=== PATIENT | male | born 1950 | race Hispanic/Latino ===

== ENCOUNTER 2020-01-05 00:46 | Observation (INO) | payer MEDICARE, OTHER ==
--- NOTE | 2020-01-05 00:54 | ED.PDOC ---
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 - History of Present Illness Timing/Duration: unsure Severity: severe Improving Factors: nothing Worsening Factors: nothing Associated Symptoms: other - dizziness Allergies/Adverse Reactions: Allergies NO KNOWN ALLERGY Allergy (Verified 07/18/16 12:52) Home Medications: Ambulatory Orders Aspirin [Aspirin EC] 81 mg PO DAILY 07/18/16 Atorvastatin Calcium [Lipitor] 40 mg PO DAILY 07/18/16 Carvedilol [Coreg] 25 mg PO BID 07/18/16 Clopidogrel Bisulfate [Plavix] 75 mg PO DAILY 07/18/16 Gabapentin [Neurontin] 300 mg PO TID 07/18/16 Levothyroxine Sodium 50 mcg PO DAILY 07/18/16 Lisinopril 10 mg PO DAILY 07/18/16 Metformin HCl [Metformin Hydrochloride] 1,000 mg PO BID 07/18/16 Ranitidine HCl [Zantac 75] 75 mg PO BID PRN 07/18/16 Albuterol Inhaler [Ventolin Hfa Inhaler] 1 puff INH Q4HR PRN #1 inh 07/21/16 Albuterol Sulfate Nebs [Proventil Nebs] 2.5 mg INH BID PRN #30 vial 07/21/16 Review of Systems - Review of Systems Constitutional: States: no symptoms reported EENTM: States: no symptoms reported Respiratory: States: no symptoms reported Cardiology: States: chest pain Gastrointestinal/Abdominal: States: no symptoms reported Genitourinary: States: no symptoms reported Musculoskeletal: States: no symptoms reported Skin: States: no symptoms reported Neurological: States: other - dizziness Endocrine: States: no symptoms reported Hematologic/Lymphatic: States: no symptoms reported Past Medical History (General) - Patient Medical History Hx Seizures: No Hx Stroke: No Hx Asthma: No Hx of COPD: No Hx Cardiac Disorders: Yes Hx Congestive Heart Failure: No Hx Hypertension: Yes Hx Diabetes: Yes Hx MRSA: No - Vaccination History Hx Influenza Vaccination: Yes - 2015 Hx Pneumococcal Vaccination: Yes - 2014 - Social History Hx Tobacco Use: No Hx Alcohol Use: No Hx Substance Use: No Hx Physical Abuse: No Hx Emotional Abuse: No Family Medical History - Family History Father Family History: Unknown Living Status: Hx Cardiac Disease: Yes - parents Hx Family Diabetes: Yes - mom Physical Exam - Physical Exam General Appearance: Alert, Well Developed, Well Groomed, Well Hydrated, Well Nourished Eye Exam: bilateral normal Ears, Nose, Throat: hearing grossly normal, normal ENT inspection, normal pharynx Neck: non-tender, full range of motion, supple, normal inspection Respiratory: chest non-tender, lungs clear, normal breath sounds, no respiratory distress, no accessory muscle use Cardiovascular/Chest: normal peripheral pulses, regular rate, rhythm, no edema, no gallop, no JVD, no murmur Peripheral Pulses: radial,right: 2+, radial,left: 2+ Gastrointestinal/Abdominal: normal bowel sounds, non tender, soft, no organomegaly, no pulsatile mass Back Exam: normal inspection Extremity: normal range of motion, non-tender, normal inspection 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 By the time patient arrived in the ER he did mention the chest pain felt like he was a little bit out of it but had no neurological deficit. Since patient fell hit the floor, order head CT that did not show evidence of epidural subdural intracranial hemorrhage, chest x-ray did not show any pneumonia or widened mediastinum to suggest aortic dissection patient troponins were negative but the d-dimer since he did mention having chest pain plus syncope I wanted to rule out a pulmonary embolism and the d- dimer came back elevated so CTA was ordered and no evidence of PE but there was evidence of bilateral pneumonia At this point I order blood cultures, put the patient on Rocephin/Zithromax and also ordered a covid-19 She was consulted with the hospitalist for admission 01/05/20 02:44 Departure - Departure Clinical Impression: Syncope Qualifiers: Syncope type: unspecified Qualified Code(s): R55 - Syncope and collapse Pneumonia Qualifiers: Pneumonia type: due to unspecified organism Laterality: bilateral Lung location: upper lobe of lung Qualified Code(s): J18.9 - Pneumonia, unspecified organism Disposition: Admit Patient Referrals: BERNABE MONSALVE [Primary Care Provider] - 1-2 Weeks Home Medications: Ambulatory Orders Aspirin [Aspirin EC] 81 mg PO DAILY 07/18/16 Atorvastatin Calcium [Lipitor] 40 mg PO DAILY 07/18/16 Carvedilol [Coreg] 25 mg PO BID 07/18/16 Clopidogrel Bisulfate [Plavix] 75 mg PO DAILY 07/18/16 Gabapentin [Neurontin] 300 mg PO TID 07/18/16 Levothyroxine Sodium 50 mcg PO DAILY 07/18/16 Lisinopril 10 mg PO DAILY 07/18/16 Metformin HCl [Metformin Hydrochloride] 1,000 mg PO BID 07/18/16 Ranitidine HCl [Zantac 75] 75 mg PO BID PRN 07/18/16 Albuterol Inhaler [Ventolin Hfa Inhaler] 1 puff INH Q4HR PRN #1 inh 07/21/16 Albuterol Sulfate Nebs [Proventil Nebs] 2.5 mg INH BID PRN #30 vial 07/21/16 Decision To Admit - Decistion To Admit Decision to Admit Reason: Admit from ER Decision to Admit Date: 01/05/20 Decision to Admit Time: 02:44
--- NOTE | 2020-01-05 01:34 | RAD ---
EXAM DESCRIPTION: Chest,1 View CLINICAL HISTORY: 69 years Male, syncope COMPARISON: 07/20/2016 TECHNIQUE: Single AP chest radiograph. FINDINGS: Clear lungs. No pneumothorax or pleural effusion. Normal cardiomediastinal contour. Normal osseous structures. IMPRESSION: 1. No acute cardiopulmonary process. Electronically signed by: Noe Ellington MD 01/05/2020 1:33 AM CDT
--- NOTE | 2020-01-05 01:34 | CT ---
EXAM: CT head without contrast. INDICATION: Syncope. TECHNIQUE: Contiguous axial CT images of the brain. Intravenous contrast: Absent. DLP 859 mGy-cm. This exam was performed according to our departmental dose-optimization program, which includes automated exposure control, adjustment of the mA and/or kV according to patient size and/or use of iterative reconstruction technique. COMPARISON: None. FINDINGS: Subcutaneous: Unremarkable. No acute intracranial hemorrhage. Brain volume is age-appropriate. There are periventricular and deep white matter chronic microvascular changes. No midline shift. No mass effect. Ventricles: No hydrocephalus. Wilhelm-white differentiation preserved. Paranasal sinuses/mastoid air cells: Visualized portions are aerated. Bones/orbits: Visualized portions are unremarkable. IMPRESSION: 1. No CT evidence of acute intracranial hemorrhage. Electronically signed by: Zaid Casey MD 01/05/2020 1:33 AM CDT
--- NOTE | 2020-01-05 01:36 | RAD ---
EXAM: Ribs,Left 3 Views CLINICAL HISTORY: syncope COMPARISON: 07/20/2016 TECHNIQUE: Three radiograph of the left ribs, including AP and oblique views. FINDINGS: No evidence of displaced rib fracture. No pneumothorax. Clear lungs. Normal cardiomediastinal contour. IMPRESSION: 1. No evidence of displaced rib fracture. Electronically signed by: Noe Ellington MD 01/05/2020 1:35 AM CDT
--- NOTE | 2020-01-05 02:35 | CT ---
CT angiogram chest with contrast on 01/05/2020 CLINICAL INDICATION: Syncope TECHNIQUE: Multiple axial images are obtained throughout the chest following the administration of IV contrast. Computer generated 3D reconstructions/MIPS were performed. This exam was performed according to our departmental dose-optimization program, which includes automated exposure control, adjustment of the mA and/or kV according to patient size and/or use of iterative reconstruction technique. Total DLP is 699.09 mGy*cm. COMPARISON: CT abdomen and lower chest from 07/18/2016 FINDINGS: Coronary artery calcifications and other vascular calcifications are noted. There is no thoracic aortic aneurysm or dissection. There are no filling defects within the pulmonary arteries to suggest pulmonary embolus. Limited visualized upper abdomen is unremarkable. There is no pleural or pericardial effusion. There is no thoracic adenopathy. There are left greater than right upper lobe areas of airspace disease consistent with bilateral pneumonia. There are bilateral tree-in-bud nodular opacities consistent with an infectious bronchiolitis, bronchopneumonia and/or aspiration. There is some bronchial wall thickening suggesting bronchitis as well. No acute bony abnormality is noted. IMPRESSION: 1. No evidence of pulmonary embolus. 2. Bilateral upper lobe early pneumonia with findings consistent with likely infectious bronchiolitis and/or bronchopneumonia bilaterally as well. 3. Bronchial wall thickening suggesting bronchitis as well. Electronically signed by: Dedrick Saul 01/05/2020 2:34 AM CDT
[2020-01-05] MEDS ORDERED: cefTRIAXone SODIUM 1 GM in SODIUM CHL 0.9% 50ML MIN-BAG+ 50 ML IVPB ONE (02:43)
[2020-01-05] MEDS ORDERED: AZITHROMYCIN IV 500 MG in SODIUM CHLORIDE 0.9% 250ML 250 ML IVPB ONE (02:44)
[2020-01-05] MEDS ORDERED: ACETAMINOPHEN 325 MG TAB PO PRN (02:49)
[2020-01-05] MEDS ORDERED: NITROGLYCERIN 0.4 MG 25 EA TAB SL PRN (02:49)
[2020-01-05] MEDS ORDERED: MORPHINE SULFATE INJ 10 MG/ML VIAL IV PRN (02:49)
[2020-01-05] MEDS ORDERED: SODIUM CHLORIDE 0.9% (FLUSH) 10 ML SYG IV PRN ×3 (02:49→02:53)
[2020-01-05] MEDS ORDERED: LACTATED RINGERS 1,000 ML IVS PRN (02:53)
[2020-01-05] MEDS ORDERED: ENOXAPARIN SODIUM 40 MG/0.4 ML SYG SUBCU SCH ×2 (03:00→21:00)
[2020-01-05] MEDS ORDERED: IV SET AND CAP CHANGE INJ INJ SCH ×3 (03:00)
[2020-01-05] MEDS ORDERED: cefTRIAXone SODIUM 1 GM in SODIUM CHL 0.9% 50ML MIN-BAG+ 50 ML IVPB SCH (03:00)
[2020-01-05] MEDS ORDERED: AZITHROMYCIN IV 500 MG in SODIUM CHLORIDE 0.9% 250ML 250 ML IVPB SCH (03:00)
--- NOTE | 2020-01-05 03:39 | HP ---
SUPERVISING PHYSICIAN: Noel Sadler MD CHIEF COMPLAINT: Chest pain. HISTORY OF PRESENT ILLNESS: This is a 69-year-old male patient who came to the hospital after a syncopal episode x2. He was at [facility] just talking with some coworkers. Initially, he passed out and came to, but then had another episode and passed out again. Therefore, he came to the Emergency Room. The patient states he had a little bit of chest pressure around that time, but no shortness of breath. He does not feel like he has been ill lately and this was an isolated incident. He has not been around anybody who has been ill, but he does work at [employer] [facility]. When he came to the ER, his workup included labs and films. His CBC was pretty much unremarkable. D-dimer was elevated at 554. Chemistry was unremarkable as well. He did have a mildly elevated BUN. Due to the elevated D-dimer, the patient had a CT angiogram which did not show any pulmonary embolism. Bilateral early upper lobe pneumonia was found. Cardiac enzymes were negative. EKG did not show any acute findings, either. Therefore, he was referred for chest pain rule out, but additionally he had a COVID-19 test based on the CT findings. At time of examination, the patient is awake and oriented. He denies any shortness of breath. 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 He has not had any fever or chills, no shortness of breath or cough. PAST MEDICAL HISTORY: 1. Hypertension. 2. Coronary artery disease. 3. Hyperlipidemia. 4. Diabetes mellitus. PAST SURGICAL HISTORY: 1. PTCA with stent. MEDICATIONS: 1. Aspirin 81 mg p.o. daily. 2. Atorvastatin 40 mg p.o. daily. 3. Carvedilol 25 mg p.o. b.i.d. 4. Plavix 75 mg p.o. daily. 5. Donepezil 10 mg p.o. at bedtime. 6. Gabapentin 300 mg p.o. t.i.d. 7. Glipizide 5 mg p.o. b.i.d. 8. Levothyroxine 50 mcg p.o. daily. 9. Lisinopril 10 mg p.o. daily. 10. Metformin 1000 mg p.o. b.i.d. 11. Zantac 75 mg p.o. b.i.d. 12. Albuterol inhaler 1 puff every 4 hours as needed. ALLERGIES: NO KNOWN DRUG ALLERGIES. FAMILY HISTORY: Reviewed and noncontributory. SOCIAL HISTORY: Previous smoker, no alcohol, no illicit drugs. REVIEW OF SYSTEMS: CONSTITUTIONAL: No fever or chills. No recent weight loss or weight gain. HEENT: No headaches, vision changes, ear pain, nasal congestion or throat pain. RESPIRATORY: No cough, hemoptysis or pleuritic chest pain. CARDIOVASCULAR: Positive for some chest pain. No palpitations or peripheral edema. GASTROINTESTINAL: No nausea, vomiting, diarrhea, constipation or abdominal pain. GENITOURINARY: No dysuria, frequency or flank pain. ENDOCRINE: No polydipsia, polyuria or polyphagia. No heat or cold intolerance. SKIN: No rashes, lesions or wounds. NEUROLOGIC: Positive for syncope. No paresthesias or seizures. PHYSICAL EXAMINATION: VITAL SIGNS: Blood pressure 178/78. Heart rate 59. Respiratory rate 17. Temperature 97.9. Oxygen saturation 98%. GENERAL: Mr. Sorensen is a 69-year-old male patient who is alert and in no active distress currently. NEUROLOGIC: The patient is alert and oriented. Cranial nerves II-XII are grossly intact. LUNGS: Clear to auscultation bilaterally. CARDIOVASCULAR: Regular rate and rhythm. Normal S1, S2. ABDOMEN: Soft. Positive bowel sounds. No tenderness to palpation. GENITOURINARY: Deferred. EXTREMITIES: Lower extremities with no edema. ASSESSMENT: 1. Chest pain, rule out acute coronary syndrome. 2. Syncopal episode. 3. Dehydration as evidenced by elevated BUN. 4. History of diabetes mellitus , type2. 5. History of coronary artery disease status post stent in the pat. PLAN: At this time, the patient is admitted for chest pain rule out. We will continue serial cardiac enzymes and EKGs. In the meantime, I will resume his home medications. He has empirically been placed on Rocephin and azithromycin given the CT findings. He has not had any shortness of breath or fever. Additionally, his blood sugar is 123 and he was checked at [facility] after his syncopal episode, so this was the cause for his syncope. I will continue his home medications and check blood sugars a.c. and h.s. I placed him on a cardiac diet as well. In the event that his cardiac enzymes are negative and he has no further syncopal episodes, we can probably discharge him home. He will remain isolated until COVID-19 testing is resulted. #[id number] [facility]
[2020-01-05] MEDS ORDERED: ALBUTEROL INHALER 64 PUFF/8GM INH PRN (08:15)
[2020-01-05] MEDS ORDERED: CARVEDILOL 12.5 MG TAB PO SCH (09:00)
[2020-01-05] MEDS ORDERED: LISINOPRIL 10 MG TAB PO SCH (09:00)
[2020-01-05] MEDS ORDERED: FAMOTIDINE 20 MG TAB PO SCH (09:00)
[2020-01-05] MEDS ORDERED: LEVOTHYROXINE SODIUM 0.025 MG TAB PO SCH (09:00)
[2020-01-05] MEDS ORDERED: ASPIRIN (ENTERIC COATED) 81 MG TAB PO SCH (09:00)
[2020-01-05] MEDS ORDERED: CLOPIDOGREL 75 MG TAB PO SCH (09:00)
[2020-01-05] MEDS: GABAPENTIN 300 MG CAP PO SCH ×2 (09:43→15:25)
[2020-01-05] MEDS: metFORMIN HCL 500 MG TAB PO SCH ×2 (09:43→15:26)
[2020-01-05] MEDS: glipiZIDE 5 MG TAB PO SCH ×2 (09:43→15:25)
[2020-01-05] MEDS ORDERED: GLUCAGON INJ 1 MG VIAL SUBCU PRN (09:45)
[2020-01-05] MEDS ORDERED: DEXTROSE 50% 25 GM/50 ML SYG IV PRN (09:45)
[2020-01-05 16:29] VITALS: BP 140/68; TEMP 98.1
--- NOTE | 2020-01-05 16:40 | SSS ---
SUPERVISING PHYSICIAN: Noel Sadler MD CHIEF COMPLAINT: Chest pain. HISTORY OF PRESENT ILLNESS: This is a 69-year-old male patient who came to the hospital after a syncopal episode x2. He was at [facility] just talking with some coworkers. Initially, he passed out and came to, but then had another episode and passed out again. Therefore, he came to the Emergency Room. The patient states he had a little bit of chest pressure around that time, but no shortness of breath. He does not feel like he has been ill lately and this was an isolated incident. He has not been around anybody who has been ill, but he does work at [facility]. When he came to the ER, his workup included labs and films. His CBC was pretty much unremarkable. D-dimer was elevated at 554. Chemistry was unremarkable as well. He did have a mildly elevated BUN. Due to the elevated D-dimer, the patient had a CT angiogram which did not show any pulmonary embolism. Bilateral early upper lobe pneumonia was found. Cardiac enzymes were negative. EKG did not show any acute findings, either. Therefore, he was referred for chest pain rule out, but additionally he had a COVID-19 test based on the CT findings. At time of examination, the patient is awake and oriented. He denies any shortness of breath. 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 He has not had any fever or chills, no shortness of breath or cough. PAST MEDICAL HISTORY: 1. Hypertension. 2. Coronary artery disease. 3. Hyperlipidemia. 4. Diabetes mellitus. PAST SURGICAL HISTORY: 1. PTCA with stent. MEDICATIONS: 1. Aspirin 81 mg p.o. daily. 2. Atorvastatin 40 mg p.o. daily. 3. Carvedilol 25 mg p.o. b.i.d. 4. Plavix 75 mg p.o. daily. 5. Donepezil 10 mg p.o. at bedtime. 6. Gabapentin 300 mg p.o. t.i.d. 7. Glipizide 5 mg p.o. b.i.d. 8. Levothyroxine 50 mcg p.o. daily. 9. Lisinopril 10 mg p.o. daily. 10. Metformin 1000 mg p.o. b.i.d. 11. Zantac 75 mg p.o. b.i.d. 12. Albuterol inhaler 1 puff every 4 hours as needed. ALLERGIES: NO KNOWN DRUG ALLERGIES. FAMILY HISTORY: Reviewed and noncontributory. SOCIAL HISTORY: Previous smoker, no alcohol, no illicit drugs. REVIEW OF SYSTEMS: CONSTITUTIONAL: No fever or chills. No recent weight loss or weight gain. HEENT: No headaches, vision changes, ear pain, nasal congestion or throat pain. RESPIRATORY: No cough, hemoptysis or pleuritic chest pain. CARDIOVASCULAR: Positive for some chest pain. No palpitations or peripheral edema. GASTROINTESTINAL: No nausea, vomiting, diarrhea, constipation or abdominal pain. GENITOURINARY: No dysuria, frequency or flank pain. ENDOCRINE: No polydipsia, polyuria or polyphagia. No heat or cold intolerance. SKIN: No rashes, lesions or wounds. NEUROLOGIC: Positive for syncope. No paresthesias or seizures. PHYSICAL EXAMINATION: VITAL SIGNS: Blood pressure 178/78. Heart rate 59. Respiratory rate 17. Temperature 97.9. Oxygen saturation 98%. GENERAL: Mr. Sorensen is a 69-year-old male patient who is alert and in no active distress currently. NEUROLOGIC: The patient is alert and oriented. Cranial nerves II-XII are grossly intact. LUNGS: Clear to auscultation bilaterally. CARDIOVASCULAR: Regular rate and rhythm. Normal S1, S2. ABDOMEN: Soft. Positive bowel sounds. No tenderness to palpation. GENITOURINARY: Deferred. EXTREMITIES: Lower extremities with no edema. ASSESSMENT: 1. Chest pain, rule out acute coronary syndrome. 2. Syncopal episode. 3. Bilateral pneumonia as evidenced by CTA of the chest. 4. Dehydration as evidenced by elevated BUN. 5. History of diabetes mellitus , type2. 6. History of coronary artery disease status post stent in the past. PLAN: At this time, the patient is admitted for chest pain rule out. We will continue serial cardiac enzymes and EKGs. In the meantime, I will resume his home medications. He has empirically been placed on Rocephin and azithromycin given the CT findings. He has not had any shortness of breath or fever. Additionally, his blood sugar is 123 and he was checked at [facility] after his syncopal episode, so this was not the cause for his syncope. I will continue his home medications and check blood sugars a.c. and h.s. I placed him on a cardiac diet as well. In the event that his cardiac enzymes are negative and he has no further syncopal episodes, we can probably discharge him home. He will remain isolated until COVID-19 testing is resulted. His completed serial cardiac enzymes remained negative along with normal EKGs. He had no further chest pain or syncopal episodes. We are discharging home with azithromycin and instructions to stay isolated until results of COVID-19 are back. #[id number] [facility]
[2020-01-05 17:31] VITALS: O2SAT 96
[2020-01-05] MEDS ORDERED: ATORVASTATIN 20 MG TAB PO SCH (21:00)
[2020-01-05] MEDS ORDERED: DONEPEZIL HCL 5 MG TAB PO SCH (21:00)
[2020-01-06] MEDS ORDERED: ASPIRIN TABLET 325 MG TAB PO SCH (09:00)
== END 2020-01-05 17:30 | disposition home or self-care (01) ==
LOC: ER 00:46 → MS 03:39
PROVIDERS: ADMIT Nurse Practitioner; ATTEND Nurse Practitioner
DX: J18.1 Lobar pneumonia, unspecified organism (principal); E86.0 Dehydration; R07.89 Other chest pain; R55 Syncope and collapse; E11.9 Type 2 diabetes mellitus without complications; I25.10 Atherosclerotic heart disease of native coronary artery without angina pectoris; I10 Essential (primary) hypertension; E78.5 Hyperlipidemia, unspecified; Z11.59 Encounter for screening for other viral diseases; Z95.5 Presence of coronary angioplasty implant and graft; Z79.02 Long term (current) use of antithrombotics/antiplatelets; Z79.82 Long term (current) use of aspirin; Z79.84 Long term (current) use of oral hypoglycemic drugs; Z79.899 Other long term (current) drug therapy; Z87.891 Personal history of nicotine dependence
CPT/HCPCS: 96374; 96376; 96372; J0696; J7050 ×2; J1650; J0456; J7120; 85379; 82553 ×2; 80053; 82948 ×2; 80061; 36415; 85025; 82550 ×2; 87040 ×2; 84484 ×3; 83880; 36416 ×2; 71045; 71101; 70450; 71275; 94664; 99285; 93005 ×3; G0378; U0002

== ENCOUNTER 2020-01-25 13:32 | Observation (INO) | payer MEDICARE ==
[2020-01-25] MEDS ORDERED: SODIUM CHLORIDE 0.9% 1000ML 2,000 ML IVS ONE (13:38)
--- NOTE | 2020-01-25 13:39 | ED.PDOC ---
History of Present Illness - General Time Seen by Provider: 01/25/20 13:37 - History of Present Illness Initial Comments: CC: syncope 70 M +pmh presents via EMS to ED c/o acute syncope [employer]. Pt was found down in his yard while mowing with associated urinary and bowel incontinence. Pt does not know what happened and denies h/of seizures. He does endorse a few episodes of syncope but denies any urinary/bowel incontinence previously. He has h/o x2 ME's with x6 stents and x4 strokes. Denies alleviating/aggravating factors. Denies associated CP, palpitations, SOB, cough, n/v/d, f/c. Pt denies any other complaints at this time. Allergies/Adverse Reactions: Allergies NO KNOWN ALLERGY Allergy (Verified 07/18/16 12:52) Home Medications: Ambulatory Orders Aspirin [Aspirin EC] 81 mg PO DAILY 07/18/16 Atorvastatin Calcium [Lipitor] 40 mg PO DAILY 07/18/16 Carvedilol [Coreg] 25 mg PO BID 07/18/16 Clopidogrel Bisulfate [Plavix] 75 mg PO DAILY 07/18/16 Gabapentin [Neurontin] 300 mg PO TID 07/18/16 Levothyroxine Sodium 50 mcg PO DAILY 07/18/16 Lisinopril 10 mg PO DAILY 07/18/16 Metformin HCl [Metformin Hydrochloride] 1,000 mg PO BID 07/18/16 Ranitidine HCl [Zantac 75] 75 mg PO BID PRN 07/18/16 Albuterol Inhaler [Ventolin Hfa Inhaler] 1 puff INH Q4HR PRN #1 inh 07/21/16 Albuterol Sulfate Nebs [Proventil Nebs] 2.5 mg INH BID PRN #30 vial 07/21/16 Azithromycin 500 mg PO DAILY 3 Days #3 tab 01/05/20 Donepezil Hydrochloride [Donepezil HCl] 10 mg PO BEDTIME 01/05/20 Glipizide 5 mg PO BID 01/05/20 Review of Systems - Review of Systems Constitutional: States: malaise. Denies: chills, fever EENTM: Denies: eye pain, blurred vision, nose congestion Respiratory: Denies: cough, short of breath Cardiology: States: syncope. Denies: chest pain, edema, palpitations Gastrointestinal/Abdominal: Denies: abdominal pain, diarrhea, nausea, vomiting Genitourinary: Denies: dysuria, frequency Musculoskeletal: Denies: back pain, joint swelling, muscle pain, neck pain Skin: Denies: change in color, rash Neurological: States: seizure - unknown to pt, likely seizure due to bowel and urine incontinence, other - generalized fatigue/weakness. Denies: headache Past Medical History (General) - Patient Medical History Hx Seizures: No Hx Stroke: No Hx Asthma: No Hx of COPD: No Hx Cardiac Disorders: Yes Hx Congestive Heart Failure: No Hx Pacemaker: No Hx Hypertension: Yes Hx Diabetes: Yes Hx MRSA: No - Vaccination History Hx Influenza Vaccination: Yes - 2015 Hx Pneumococcal Vaccination: Yes - 2013 - Social History Hx Tobacco Use: No Hx Alcohol Use: No Hx Substance Use: No Hx Physical Abuse: No Hx Emotional Abuse: No Family Medical History - Family History Father Family History: Unknown Living Status: Hx Cardiac Disease: Yes - parents Hx Family Diabetes: Yes - mom Physical Exam - Physical Exam General Appearance: Alert, Ill Appearing Eye Exam: bilateral normal Ears, Nose, Throat: normal ENT inspection Neck: non-tender, full range of motion, supple, normal inspection Respiratory: lungs clear, normal breath sounds, no respiratory distress, no accessory muscle use Cardiovascular/Chest: normal peripheral pulses, regular rate, rhythm, no edema, no JVD, no murmur Gastrointestinal/Abdominal: normal bowel sounds, non tender, soft, no pulsatile mass Extremity: non-tender, normal inspection, no pedal edema Neurologic: other - alert, GCS 14, global weakness without focal deficit Skin Exam: normal color, other - cool, wet from outdoorr environment, no pallor, no rash, no edema Progress - Progress Progress: Presents with likely dehydration and heat induced new onset seizure. No external signs of trauma and pt is hypothermic; thus not head stroke. I will obtain labs, imaging, EKG, provide appropriate pharmacotherapy, and continue to monitor/reassess. Disposition will depend on labs, imaging, EKG, and overall ED course; however, admission is expected. Obed Tello DO [employer]: [phone] Rechecked pt with family at bedside. NAD, VSS and improved, and pt is feeling better with GCS 15. I have discussed labs, imaging, and my clinical exam with pt and family member. They both agree with admission. 1509 I have consulted with hospitalist Cindy Hernández and discussed pt's case. She will consult with her attending and supporting staff; then call back and notify if pt can be admitted or will require transfer. - Results/Orders Results/Orders: EKG @ 1334 Read @1335 NSR @73, nl axis, intervals wnl, no ST elevations/depressions. No STEMI. Vital Signs - 24 hr 01/25/20 01/25/20 01/25/20 13:50 14:32 15:00 Temperature 96.6 F L Pulse Rate [ 70 76 83 Left Radial] Respiratory 20 20 16 Rate Blood Pressure 130/69 111/59 129/67 [Left Arm] O2 Sat by Pulse 97 96 98 Oximetry 01/25/20 13:37 IV Care:Saline Lock per Protoc QSHIFT IV:Start .ONCE 01/25/20 13:45 EKG STAT 01/25/20 14:43 ED Intent to Admit Routine Laboratory Results - last 24 hr 01/25/20 01/25/20 01/25/20 13:40 13:40 13:40 WBC 10.7 RBC 4.91 Hgb 14.3 Hct 41.5 L MCV 84.5 MCH 29.0 MCHC 34.4 RDW 15.7 H Plt Count 383 MPV 8.6 Absolute Neuts (auto) 8.40 H Absolute Lymphs (auto) 1.20 Absolute Monos (auto) 0.50 Absolute Eos (auto) 0.40 Absolute Basos (auto) 0.20 H Neutrophils % 78.5 H Lymphocytes % 11.3 L Monocytes % 4.7 Eosinophils % 3.4 Basophils % 2.1 H PT INR PTT (SP) Sodium 139 Potassium 4.7 Chloride 103 Carbon Dioxide 24 Anion Gap 16.7 BUN 19 H Creatinine 1.95 H BUN/Creatinine Ratio 9.7 L Random Glucose 145 H Serum Osmolality 282.4 Lactic Acid Calcium 9.6 Magnesium 1.8 Total Bilirubin 1.1 H AST 24 ALT 20 Alkaline Phosphatase 73 Troponin I < 0.02 Serum Total Protein 8.2 Albumin 4.6 Globulin 3.6 H Albumin/Globulin Ratio 1.3 01/25/20 01/25/20 01/25/20 13:40 13:47 15:19 WBC RBC Hgb Hct MCV MCH MCHC RDW Plt Count MPV Absolute Neuts (auto) Absolute Lymphs (auto) Absolute Monos (auto) Absolute Eos (auto) Absolute Basos (auto) Neutrophils % Lymphocytes % Monocytes % Eosinophils % Basophils % PT 10.1 INR 1.02 PTT (SP) 20.5 L Sodium Potassium Chloride Carbon Dioxide Anion Gap BUN Creatinine BUN/Creatinine Ratio Random Glucose Serum Osmolality Lactic Acid 5.0 H* 3.6 H* Calcium Magnesium Total Bilirubin AST ALT Alkaline Phosphatase Troponin I Serum Total Protein Albumin Globulin Albumin/Globulin Ratio EXAM DESCRIPTION: Head CLINICAL HISTORY: 70 years Male, heat stroke, h/o x4 strokes COMPARISON: 01/05/2020. TECHNIQUE: Axial images obtained from the skull base to the vertex without intravenous contrast with images. Coronal and sagittal reformations provided. This exam was performed according to our departmental dose-optimization program, which includes automated exposure control, adjustment of the mA and/or kV according to patient size and/or use of iterative reconstruction technique. Time Last Seen Well (If known) for Code Stroke: n/a FINDINGS: Brain Parenchyma, ventricles, meninges, and extra-axial spaces: Mild generalized cerebral volume loss. [id number] Nonspecific white matter hypodensities in the cerebral hemispheres likely related to ischemic small vessel disease. Possible difficulty differentiating a small acute infarction given these hypodensities. No acute intracranial hemorrhage. No abnormal extra-axial fluid collection. Vascular: Atherosclerosis is within the carotid siphons and vertebral arteries. Calvarium, paranasal sinuses, mastoids, and orbits: Calvarium intact. Visualized paranasal sinuses and mastoid air cells clear. Orbits unremarkable. IMPRESSION: 1. No acute intracranial abnormality. 2. Senescent changes. 3. No significant interval change from 01/05/2020. Electronically signed by: Kee Bradshaw MD 01/25/2020 2:05 PM CDT - 8169 Departure - Departure Clinical Impression: Dehydration after exertion, New onset seizure without head trauma, Lactic acid acidosis, LARA (acute kidney injury), Syncope and collapse Time of Disposition: 15:09 Disposition: Admit Patient Condition: Good Diet: resume usual diet Home Medications: Ambulatory Orders Aspirin [Aspirin EC] 81 mg PO DAILY 07/18/16 Atorvastatin Calcium [Lipitor] 40 mg PO DAILY 07/18/16 Carvedilol [Coreg] 25 mg PO BID 07/18/16 Clopidogrel Bisulfate [Plavix] 75 mg PO DAILY 07/18/16 Gabapentin [Neurontin] 300 mg PO TID 07/18/16 Levothyroxine Sodium 50 mcg PO DAILY 07/18/16 Lisinopril 10 mg PO DAILY 07/18/16 Metformin HCl [Metformin Hydrochloride] 1,000 mg PO BID 07/18/16 Ranitidine HCl [Zantac 75] 75 mg PO BID PRN 07/18/16 Albuterol Inhaler [Ventolin Hfa Inhaler] 1 puff INH Q4HR PRN #1 inh 07/21/16 Albuterol Sulfate Nebs [Proventil Nebs] 2.5 mg INH BID PRN #30 vial 07/21/16 Azithromycin 500 mg PO DAILY 3 Days #3 tab 01/05/20 Donepezil Hydrochloride [Donepezil HCl] 10 mg PO BEDTIME 01/05/20 Glipizide 5 mg PO BID 01/05/20 Decision To Admit - Decistion To Admit Decision to Admit Reason: Admit from ER Decision to Admit Date: 01/25/20 Decision to Admit Time: 15:01
--- NOTE | 2020-01-25 14:06 | CT ---
EXAM DESCRIPTION: Head CLINICAL HISTORY: 70 years Male, heat stroke, h/o x4 strokes COMPARISON: 01/05/2020. TECHNIQUE: Axial images obtained from the skull base to the vertex without intravenous contrast with images. Coronal and sagittal reformations provided. This exam was performed according to our departmental dose-optimization program, which includes automated exposure control, adjustment of the mA and/or kV according to patient size and/or use of iterative reconstruction technique. Time Last Seen Well (If known) for Code Stroke: n/a FINDINGS: Brain Parenchyma, ventricles, meninges, and extra-axial spaces: Mild generalized cerebral volume loss. [id number] Nonspecific white matter hypodensities in the cerebral hemispheres likely related to ischemic small vessel disease. Possible difficulty differentiating a small acute infarction given these hypodensities. No acute intracranial hemorrhage. No abnormal extra-axial fluid collection. Vascular: Atherosclerosis is within the carotid siphons and vertebral arteries. Calvarium, paranasal sinuses, mastoids, and orbits: Calvarium intact. Visualized paranasal sinuses and mastoid air cells clear. Orbits unremarkable. IMPRESSION: 1. No acute intracranial abnormality. 2. Senescent changes. 3. No significant interval change from 01/05/2020. Electronically signed by: Kee Bradshaw MD 01/25/2020 2:05 PM CDT
[2020-01-25] MEDS ORDERED: levETIRAcetam INJ 1,000 MG in SODIUM CHLORIDE 0.9% 100ML 100 ML IVPB ONE (14:43)
--- NOTE | 2020-01-25 15:39 | HP ---
SUPERVISING PHYSICIAN: Sal Borja MD CHIEF COMPLAINT: Syncopal episode. HISTORY OF PRESENT ILLNESS: This is a 70 year-old male patient who was at home in his usual state of health. He was out mowing the grass and asked his grandson to go in and get him some later. He was later found down in his front yard for an unknown amount of time. He did have urinary and bowel incontinence at that time and he does not remember what happened but there is no history of seizure disorder. He has had some syncopal episode in the past but he denies any urinary or bowel incontinence. He has had a history of 2 myocardial infarctions in the past with multiple stents. He denied any chest pain, palpitations or upper respiratory symptoms and by the time he presented to the Emergency Room, he was alert and oriented and his vital signs were stable. In the Emergency Room, his initial set of vital signs showed a temperature of 96.6 with a heart rate of 70, blood pressure 130/69, respiratory rate 20, oxygen saturation 97%. His lab studies showed WBC of 10.7 with hemoglobin of 14.3, hematocrit 41.5. He did have a left shift on his differential. His electrolytes are basically within normal limits. His lactic acid was high at 5 and his BUN was 19, creatinine 1.95, baseline creatinine is about 1.1. Troponin was negative. Bilirubin was slightly elevated at 1.1. Head CT showed: (1) No acute intracranial abnormality. (2) Senescent changes. (3) No significant interval change from 01/05/20. He was given fluids in the Emergency Room as well as some Levetiracetam and I was called for hospital admission. PAST MEDICAL HISTORY: 1. Hypertension. 2. Coronary artery disease. 3. Hyperlipidemia. 4. Diabetes mellitus type 2. 5. Myocardial infarction times 2. PAST SURGICAL HISTORY: 1. PTCA with stents. MEDICATIONS: Per the EMR and awaiting verification. ALLERGIES: NO KNOWN DRUG ALLERGIES. FAMILY HISTORY: Noncontributory. SOCIAL HISTORY: He has a previous history of tobacco use but he quit smoking approximately 15 years ago. He denies any ETOH or illicit drug use. REVIEW OF SYSTEMS: GENERAL: Negative for chills, fever or weight changes. HEENT: Negative for sinus symptoms, ear pain, vision changes, sore throat. RESPIRATORY: Negative for coughing, wheezing, shortness of breath CARDIAC: Negative for chest pain, palpitations, tachycardia. GI: Negative for nausea, vomiting or diarrhea or constipation. . SKIN: Negative for lesions or rashes. NEUROLOGICAL: Positive for syncopal episode, down for unknown length of time as well as some mild weakness. Negative for headaches or seizures. PHYSICAL EXAMINATION: VITAL SIGNS: Temperature 97./9, heart rate 88, blood pressure 126/68, respiratory rate 16, oxygen saturation 98% on room air. GENERAL: This is a 70 year-old male patient who is lying in his hospital bed. He is in no acute distress. HEENT: Normocephalic and atraumatic. Pupils are equal and reactive. Oropharynx clear. NECK: Supple without mass. CHEST: Essentially clear to auscultation bilaterally. There is equal rise and fall of the chest with inspiration and expiration CARDIOVASCULAR: Regular rate and rhythm. ABDOMEN: Soft, nondistended, non-tender. Bowel sounds are positive. BACK: Exam deferred. GENITOURINARY: Deferred. EXTREMITIES: No cyanosis, clubbing, or edema. NEUROLOGIC: He is awake, alert, and oriented x3. Cranial nerves II through XII are grossly intact as tested. LABORATORY: Labs and films are as per history of present illness. ASSESSMENT: 1. Acute on chronic kidney injury, baseline creatinine is 1.1. His admitting creatinine is 1.95. 2. Syncope with heat exhaustion versus questionable seizure. He has no history of seizure disorder. 3. Coronary artery disease with WA in the past plus stent placement. 4. Hypertension. 5. Diabetes mellitus type 2. PLAN: The patient will be placed in observation. We will give him fluids overnight and repeat his labs in the morning. His home medications will be restarted as soon as they are verified. Neuro checks will be done and we will watch for any seizure activity. He will have Lovenox for DVT prophylaxis, a PPI for ulcer prophylaxis. He will be on sliding scale insulin. He will need close followup with his primary care physician, Dr. Alberta Morales in [place] at discharge. We will continue to monitor him closely and follow as needed. #[id number] [facility]
[2020-01-25] MEDS ORDERED: ONDANSETRON INJ 4 MG/2 ML VIAL IV PRN (16:48)
[2020-01-25] MEDS ORDERED: SODIUM CHLORIDE 0.9% (FLUSH) 10 ML SYG IV PRN (16:48)
[2020-01-25] MEDS ORDERED: SODIUM CHLORIDE 0.45% 1000ML 1,000 ML IVS ONE (16:54)
[2020-01-25] MEDS ORDERED: DEXTROSE 50% 25 GM/50 ML SYG IV PRN (16:58)
[2020-01-25] MEDS ORDERED: GLUCAGON INJ 1 MG VIAL SUBCU PRN (16:58)
[2020-01-25] MEDS ORDERED: ALBUTEROL SULFATE 2.5 MG/3 ML VIAL NEB PRN (17:00)
[2020-01-25] MEDS ORDERED: ENOXAPARIN SODIUM 40 MG/0.4 ML SYG SUBCU SCH (17:00)
[2020-01-25] MEDS ORDERED: IV SET AND CAP CHANGE INJ INJ SCH (17:00)
[2020-01-25] MEDS: INSULIN LISPRO 100 UNITS/ML PEN SUBCU SCH ×2 (18:22→21:05)
[2020-01-25] MEDS: ALBUTEROL SULFATE 2.5 MG/3 ML VIAL NEB SCH (20:45)
[2020-01-25] MEDS: SODIUM CHLORIDE 0.9% (FLUSH) 10 ML SYG IV SCH (21:10)
[2020-01-25] MEDS ORDERED: CARVEDILOL 12.5 MG TAB ONE (22:39)
[2020-01-25] MEDS: NON-FORMULARY MEDICATION 1 EA MIS (Carvedilol [Coreg] 25 MG) PO SCH (22:42)
[2020-01-25] MEDS: GABAPENTIN 300 MG CAP PO SCH (22:43)
[2020-01-26] MEDS ORDERED: LEVOTHYROXINE SODIUM 0.025 MG TAB ONE (04:52)
[2020-01-26] MEDS ORDERED: PANTOPRAZOLE SODIUM IV 40 MG VIAL ONE (04:52)
[2020-01-26 05:08] VITALS: TEMP 98.1
[2020-01-26] MEDS ORDERED: PANTOPRAZOLE SODIUM IV 40 MG VIAL IV SCH (06:30)
[2020-01-26] MEDS ORDERED: NON-FORMULARY MEDICATION 1 EA MIS (Levothyroxine Sodium [Levothyroxine Sodium] 50 MCG) PO SCH (07:00)
[2020-01-26] MEDS: INSULIN LISPRO 100 UNITS/ML PEN SUBCU SCH (07:18)
[2020-01-26] MEDS ORDERED: LISINOPRIL 10 MG TAB ONE (08:10)
[2020-01-26] MEDS ORDERED: CARVEDILOL 12.5 MG TAB ONE (08:10)
[2020-01-26] MEDS ORDERED: metFORMIN HCL 500 MG TAB ONE (08:10)
[2020-01-26] MEDS: GABAPENTIN 300 MG CAP PO SCH (08:15)
[2020-01-26] MEDS: NON-FORMULARY MEDICATION 1 EA MIS (Carvedilol [Coreg] 25 MG) PO SCH (08:15)
[2020-01-26] MEDS: SODIUM CHLORIDE 0.9% (FLUSH) 10 ML SYG IV SCH (08:16)
[2020-01-26 08:48] VITALS: BP 135/72
[2020-01-26] MEDS ORDERED: CLOPIDOGREL 75 MG TAB PO SCH (09:00)
[2020-01-26] MEDS ORDERED: ASPIRIN (ENTERIC COATED) 81 MG TAB PO SCH (09:00)
[2020-01-26] MEDS ORDERED: LISINOPRIL 10 MG TAB PO SCH (09:00)
[2020-01-26] MEDS ORDERED: NON-FORMULARY MEDICATION 1 EA MIS (Lisinopril [Lisinopril] 20 MG) PO SCH (09:00)
[2020-01-26] MEDS ORDERED: NON-FORMULARY MEDICATION 1 EA MIS (Metformin Hcl [Metformin Hydrochloride] 1,000 MG) PO SCH (09:00)
[2020-01-26] MEDS ORDERED: MAGNESIUM SULFATE PREMIX 2GM 2 GM in PREMIX BAG 1 BAG IVPB ONE (09:10)
[2020-01-26] MEDS: ALBUTEROL SULFATE 2.5 MG/3 ML VIAL NEB SCH (09:18)
[2020-01-26] MEDS ORDERED: MAGNESIUM SULFATE PREMIX 2GM 50 ML IVPB ONE (09:19)
[2020-01-26 09:22] VITALS: O2SAT 95
--- NOTE | 2020-01-26 12:36 | DS ---
SUPERVISING PHYSICIAN: Vipin Borja MD DISCHARGE DIAGNOSIS: 1. Acute on chronic kidney injury, baseline creatinine is 1.1. His admitting creatinine was 1.95. He has now normalized to his baseline. 2. Syncope with heat exhaustion versus questionable seizure. He has no history of seizure disorder. 3. Coronary artery disease with myocardial infarction in the past plus stent placement. 4. Hypertension. 5. Diabetes mellitus, type 2. HISTORY OF PRESENT ILLNESS: This is a 70 year-old male patient who was at home in his usual state of health. He was out mowing the grass and asked his grandson to go in and get him some water. He was later found down in his front yard for an unknown amount of time. He did have urinary and bowel incontinence at that time and he does not remember what happened but there is no history of seizure disorder. He has had some syncopal episodes in the past but he denies any urinary or bowel incontinence. He has had a history of 2 myocardial infarctions in the past with multiple stents. He denied any chest pain, palpitations or upper respiratory symptoms and by the time he presented to the Emergency Room, he was alert and oriented and his vital signs were stable. In the Emergency Room, his initial set of vital signs showed a temperature of 96.6 with a heart rate of 70, blood pressure 130/69, respiratory rate 20, oxygen saturation 97%. His lab studies showed WBC of 10.7 with hemoglobin of 14.3, hematocrit 41.5. He did have a left shift on his differential. His electrolytes are basically within normal limits. His lactic acid was high at 5 and his BUN was 19, creatinine 1.95, baseline creatinine is about 1.1. Troponin was negative. Bilirubin was slightly elevated at 1.1. Head CT showed: (1) No acute intracranial abnormality. (2) Senescent changes. (3) No significant interval change from 01/05/20. He was given fluids in the Emergency Room as well as some Levetiracetam and I was called for hospital admission. HOSPITAL COURSE: The patient was placed in observation and was given fluids overnight. His labs were repeated this morning and his home medications were restarted. His magnesium was low this morning, so we gave him some supplementation. He had no changes in his neuro status and there was no further seizure activity noted. He clinically is much improved today and will be discharged home with a close followup with his primary care physician, Dr. Alberta Morales, in [place]. LABORATORY: WBCs 10.7 on admission and today are 6.4. Hemoglobin and hematocrit are stable at 11.9 and 35.3. Initially, he had a left shift on his differential and that is normalized. His electrolytes are basically within normal limits today and his creatinine is improved to 1.15. His lactic acid on admission was 5 and after fluids and treatment, this morning it was 1. His magnesium was 1.5 and he received supplementation. His total bilirubin is still slightly elevated at 1.1. His triglycerides are 133, LDL 57.5, HDL 30, TSH 1.81. All other labs and films have been reviewed via the EMR. DISCHARGE PLAN: The patient will be discharged home in stable condition. He is to drink plenty of fluids and watch getting overheated outside. He is to resume his usual diet and increase his activity as tolerated. He is to followup with his PCP, Dr. Morales, in [place] within the next 1 to 2 weeks. There have been no changes on his medications and he is to resume his previous medications as ordered. He is to return to the hospital or followup with Dr. Morales for any problems or complications. DISCHARGE MEDICATIONS: 1. Metformin. 2. Carvedilol. 3. Gabapentin. 4. Lipitor. 5. Levothyroxine. 6. Plavix. 7. Aspirin. 8. Albuterol nebulizers. 9. Glipizide. 10. Donepezil. 11. Lisinopril. #[id number] [facility]
[2020-01-26] MEDS ORDERED: metFORMIN HCL 500 MG TAB PO SCH (17:00)
[2020-01-26] MEDS ORDERED: DONEPEZIL HCL 5 MG TAB PO SCH (21:00)
[2020-01-26] MEDS ORDERED: ATORVASTATIN 20 MG TAB PO SCH (21:00)
[2020-01-26] MEDS ORDERED: CARVEDILOL 12.5 MG TAB PO SCH (21:00)
[2020-01-27] MEDS ORDERED: LEVOTHYROXINE SODIUM 0.025 MG TAB PO SCH (07:00)
== END 2020-01-26 11:05 | disposition home or self-care (01) ==
LOC: ER 13:32 → MS 15:37
PROVIDERS: ADMIT Nurse Practitioner Acute Care; ATTEND Nurse Practitioner Acute Care
DX: N17.9 Acute kidney failure, unspecified (principal); I12.9 Hypertensive chronic kidney disease with stage 1 through stage 4 chronic kidney disease, or unspecified chronic kidney disease; E11.22 Type 2 diabetes mellitus with diabetic chronic kidney disease; N18.9 Chronic kidney disease, unspecified; R55 Syncope and collapse; E83.42 Hypomagnesemia; E87.2 Acidosis; E86.0 Dehydration; R32 Unspecified urinary incontinence; R15.9 Full incontinence of feces; I25.10 Atherosclerotic heart disease of native coronary artery without angina pectoris; I25.2 Old myocardial infarction; Z95.5 Presence of coronary angioplasty implant and graft; Z79.84 Long term (current) use of oral hypoglycemic drugs; Z79.02 Long term (current) use of antithrombotics/antiplatelets; Z79.82 Long term (current) use of aspirin; Z79.899 Other long term (current) drug therapy; Z87.891 Personal history of nicotine dependence
CPT/HCPCS: 96361; 96367; 96365; 96375; 96372; J7611; J7799; J7030; J1650; A4216; J3475; J7050; 80053 ×2; 82948 ×3; 80061; 36415 ×6; 85025 ×2; 83735 ×3; 85730; 85610; 84443; 84484; 36416; 83605 ×3; 70450; 94760 ×2; 94640; 94762; 99285; 93005; G0378

== ENCOUNTER → 2020-05-30 | Outpatient (CLI) | payer MEDICARE | LOC: YCFC.O 16:32 | PROVIDERS: ATTEND Family Medicine | DX: Z03.818 Encounter for observation for suspected exposure to other biological agents ruled out (principal) ==